=== PATIENT | female | born 1990 | race Caucasian/White ===

== ENCOUNTER 2019-01-30 10:05 | Emergency (ER) | payer OTHER, MEDICAID, SELFPAY ==
[2019-01-30 10:05] VITALS: BP 118/76; PULSE 84; RESP 18; TEMP 36.7; O2SAT 100; BMI 39.8
--- NOTE | 2019-01-30 10:25 | ED_ITS ---
HPI - Skin/Abscess/Foreign Bdy General Chief complaint: Extremity Problem,Nontraumatic Stated complaint: large swollen area on left leg Time Seen by Provider: 01/30/19 10:08 Source: patient Mode of arrival: ambulatory Limitations: no limitations History of Present Illness HPI narrative: 28-year-old female comes to the emergency department with complaint of lesions on both of her lower extremities. Patient states it started over the last couple days. There was one lesion that has improved with redness and swelling. There is another that is little bit red, swollen and had a little bit of purulent drainage. Patient states that seems to be swelling up a little bit more. The other lesions have some slight redness but no swelling and no drainage currently. Patient states it seems to be from below the knees to the tops of the feet. She does not have any other rash or skin changes elsewhere. She states the lesions are not itchy. She does not think that she had any recent exposures. She has not been on any new medications, she does spend time outdoors. 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 She states she has not been wearing shorts she typically does wet pants. Patient denies any fevers, chest pain, no shortness of breath, no nausea or vomiting or other GI or urinary symptoms. She does take sertraline and trazodone has been taking this for several months. She did start a multivitamin recently. She denies any surgeries. Denies any tobacco, rare alcohol, no illicit. Related Data Previous Rx's Medication Instructions Recorded clindamycin HCl 300 mg PO QID 7 Days #28 cap 01/30/19 Allergies Allergy/AdvReac Type Severity Reaction Status Date / Time Penicillins Allergy Verified 01/30/19 10:10 Review of Systems Review of Systems ROS Unobtainable: All systems reviewed & are unremarkable except as noted in HPI and below Constitutional Denies chills, Denies fever(s), Denies lethargy and Denies weakness Cardiovascular Denies chest pain and Denies dyspnea Respiratory Denies dyspnea Gastrointestinal Gastrointestinal: Denies abdominal pain, Denies change in bowel habits, Denies diarrhea, Denies nausea and Denies vomiting Genitourinary Denies hematuria, Denies flank pain, Denies urinary hesitancy and Denies urinary urgency Musculoskeletal Reports as per HPI, Denies muscle weakness, Denies numbness and Denies tingling Integumentary/Breasts Reports as per HPI, Reports erythema, Reports rash, Reports skin swelling, Reports sores and Reports other (Draining from 1 lesion) Neurologic Denies numbness, Denies tingling and Denies weakness [facility] Medical History (Updated 01/30/19 @ 10:25 by Coco Clifford DO) Anxiety (Chronic) Exam Narrative Exam Narrative: GENERAL: Alert and oriented x three, well-nourished, well- appearing female in no acute distress. HEENT: Head normocephalic, atraumatic, EOMI, pupils reactive, face symmetric, moist mucous membranes NECK: Supple, full range of motion CARDIOVASCULAR: Regular rate and rhythm without murmurs, rubs or gallops. RESPIRATORY: Breath sounds equal bilaterally, no wheezes rales or rhonchi. ABDOMEN: Soft, nontender. Normoactive bowel sounds all 4 quadrants. No guarding or rebound, rigidity, no mass : No CVA tenderness EXTREMITIES: Normal range of motion, no clubbing or edema. Neurovascularly intact. 2+ dorsalis pedis bilaterally. Patient has multiple small erythematous ulcerations on your lower extremities from just below the knee to the edge of the top of the foot. Patient has on the left lower extremity on the anterior rosa a larger lesion with surrounding erythema that is about a cm and half in size. There is no active drainage but a little bit of dried serosanguineous. The area has a little bit indurated with no fluctuance. The area does appear slightly excoriated. NEUROLOGICAL: Cranial nerves II through XII grossly intact. Moving all extremities SKIN: Warm, dry, no petechiae. Initial Vital Signs Initial Vital Signs: Vital Signs Temperature 98.1 F 01/30/19 10:05 Pulse Rate 84 01/30/19 10:05 Respiratory Rate 18 01/30/19 10:05 Blood Pressure 118/76 01/30/19 10:05 Pulse Oximetry 100 01/30/19 10:05 Course Vital Signs - 8 hr 01/30/19 10:05 Temperature 98.1 F Pulse Rate 84 Respiratory Rate 18 Blood Pressure 118/76 Pulse Oximetry 100 MDM - Skin/Abscess/Foreign Bdy MDM Narrative Medical decision making narrative: Discussed with patient based on her history as well as the localized pattern on both lower extremities I suspect that there is a more topical or contact type cause of her symptoms. Although a folliculitis from shaving would be possible. Her 1 lesion it does look like it has been come infected. Plan to start on oral antibiotics. Discharge home with plan for warm compresses regularly. Her home medications are unlikely to be because she has been on them for several months and it is very localized reaction. No other findings concerning for other potential causes. Discharge Plan Departure Patient Disposition: Home Clinical Impression: Cellulitis of left leg, Rash and nonspecific skin eruption Discharge Date/Time: 01/30/19 10:48 Interventions: ED Discharge Assessment Last Done: 01/30/19 10:47 Instructions: DI for Cellulitis -- Adult Activity Restrictions/Additional Instructions: Follow-up with primary care for symptoms have not resolved in the next 5-7 days. Start antibiotics today take them until they are completely gone. You may continue home medications as prescribed. Place warm compresses on the affected area, red, swollen area 4 times daily. Return to the emergency department for fevers greater than 100.4 F, worsening redness, swelling, drainage, increasing pain in your lower extremities, rash that is spreading throughout your body, new chest pain, shortness of breath, passing out persistent Prescriptions: New clindamycin HCl 300 mg capsule 300 mg PO QID 7 Days Qty: 28 RF: 0
== END 2019-01-30 10:48 | disposition home or self-care (01) ==
LOC: ED 10:45
PROVIDERS: Emergency Provider Emergency Medicine
DX: L03.116 Cellulitis of left lower limb (principal)
CPT/HCPCS: 99282; 99283

== ENCOUNTER → 2019-06-15 12:36 | Outpatient (CLI) | payer OTHER, MEDICAID, SELFPAY | PROVIDERS: Visit Provider Physician Assistant | DX: R30.0 Dysuria (principal) | CPT/HCPCS: 87077; 87086; 87186 ==

== ENCOUNTER → 2019-07-21 16:34 | Outpatient (CLI) | payer OTHER, SELFPAY | PROVIDERS: Visit Provider Physician Assistant | DX: R30.0 Dysuria (principal) | CPT/HCPCS: 87077; 87086; 87186 ==

== ENCOUNTER → 2020-03-16 12:54 | Outpatient (CLI) | payer OTHER, SELFPAY ==
--- NOTE | 2020-03-16 12:56 | DI.RAD.S_ITS ---
PROCEDURE: XR CHEST 2V INDICATIONS: painful, firm, lump anterior chest TECHNIQUE: 2 views of the chest were acquired. COMPARISON: None. FINDINGS: Surgical changes and devices: None. Lungs and pleura: Lungs are clear. No pleural effusions or pneumothorax. Mediastinum: Mediastinal contours are normal. Heart size is normal. Bones and chest wall: No suspicious bony abnormalities. Soft tissues appear unremarkable. IMPRESSION: No abnormality. Chest radiographs are of poor sensitivity for evaluating chest wall lesions. CT of the chest recommended. Dictated by: Dudley Rivera M.D. on 03/16/2020 at 13:39 Approved by: Dudley Rivera M.D. on 03/16/2020 at 13:39
== END ==
PROVIDERS: PCP Family Medicine; Referring Provider Physician Assistant; Visit Provider Physician Assistant
DX: R22.2 Localized swelling, mass and lump, trunk (principal)
CPT/HCPCS: 71046

== ENCOUNTER → 2020-03-19 14:12 | Outpatient (CLI) | payer OTHER, SELFPAY ==
--- NOTE | 2020-03-19 14:13 | DI.CT.S_ITS ---
PROCEDURE: CT CHEST WO CON INDICATIONS: firm, swollen mass, sternum TECHNIQUE: Noncontrast 5 mm thick sections acquired from the pulmonary apices to the posterior costophrenic angles. 1 mm lung window, 5 mm thick coronal and sagittal and 7 mm axial MIP reformats were then acquired. For radiation dose reduction, the following was used: automated exposure control, adjustment of mA and/or kV according to patient size. COMPARISON: None. FINDINGS: Image quality: Excellent. Lungs and pleura: No acute air space opacities. No pleural effusions or pneumothorax. Central and peripheral airways are patent and normal in caliber. Mediastinum: Heart size is normal. No pericardial effusion. No mediastinal adenopathy by size criteria. Thoracic aorta and central pulmonary arteries are normal in size. Esophagus is normal in caliber. No hiatal hernia. Bones and chest wall: No suspicious bony lesions. Question subtle erosive process at the sternomanubrial junction. Otherwise, no destructive process involving the sternum. No vertebral body compression fractures. No axillary or supraclavicular adenopathy by size criteria. Thyroid gland is unremarkable . Abdomen: Visualized upper abdominal solid organs and bowel loops appear normal in the absence of contrast. IMPRESSION: Question subtle erosive process at the sternomanubrial junction. This finding is of uncertain significance, and may be a normal appearance. Recommend clinical correlation for pain symptoms. Otherwise unremarkable appearance of the sternum and chest. Dictated by: Urban Rose M.D. on 03/19/2020 at 14:28 Approved by: Urban Rose M.D. on 03/19/2020 at 14:40
== END ==
PROVIDERS: PCP Family Medicine; Referring Provider Physician Assistant; Visit Provider Physician Assistant
DX: R22.2 Localized swelling, mass and lump, trunk (principal)
CPT/HCPCS: 71250

== ENCOUNTER → 2020-04-07 11:11 | Outpatient (CLI) | payer OTHER, SELFPAY ==
--- NOTE | 2020-04-07 11:12 | DI.NM.S_ITS ---
PROCEDURE: NM BONE SCAN WHOLE BODY RADIOPHARMACEUTICAL: 21.1 mCi Tc-99m MDP IV. INDICATIONS: tender area upper sternum.?abnormal on CT TECHNIQUE: Delayed whole-body scintigrams were obtained approximately 3-4 hours after intravenous injection of radiotracer. Anterior and posterior views were acquired from vertex to feet. Additional left and right oblique views of the sternal/anterior chest regions were obtained. COMPARISON: [facility], CT, CT CHEST WO CON, 03/19/2020, 14:15. [facility], CR, XR CHEST 2V, 03/16/2020, 13:01. FINDINGS: There is a single identified abnormality centered at the sternal manubrial junction where elevated delayed bone scan isotope deposition is present. This correlates with the area of CT-documented erosions of the lower margin of the manubrial articulation against the upper sternum, where irregularity of the articular margin is more prominent superiorly than inferiorly. IMPRESSION: The CT finding of mild osseous erosion at the sternomanubrial junction margins is identified as an abnormal area of isotope uptake on the current bone scan imaging. This is best seen on the oblique views targeted to the sternum and the finding raises concern given the erosion present of early osteomyelitis. Dictated by: Andrew Avalos M.D. on 04/07/2020 at 15:09 Approved by: Andrew Avalos M.D. on 04/07/2020 at 15:15
== END ==
PROVIDERS: PCP Family Medicine; Referring Provider Family Medicine; Visit Provider Specialist
DX: M89.8X8 Other specified disorders of bone, other site (principal)
CPT/HCPCS: 78306; A9503

== ENCOUNTER → 2020-05-14 07:50 | Outpatient (CLI) | payer OTHER, SELFPAY ==
[2020-05-14 09:41] LABS: INR 1.2 (0.9-1.3); Prothrombin Time 13.5 SECONDS (10.1-12.7)
[2020-05-16 09:26] LABS: COVID19 Sendout Not Detected (Not Detect)
--- NOTE | 2020-05-17 09:51 | DI.CT.S_ITS ---
PROCEDURE: CT BIOPSY BONE SUPERFICIAL INDICATIONS: abnormal sternum on bone scan. FNA for cytoloty AND culture TECHNIQUE: The indications, alternatives, benefits, risks, and possible complications of the procedure were communicated to the patient. Informed written consent from the patient was obtained and placed in the chart. Continuous EKG and hemodynamic monitoring was started by trained personnel. The patient was brought to the CT suite and draw furnace tender spiral CT imaging was performed with localization grid. The appropriate site for percutaneous access to the biopsy target was marked, was prepped and draped sterilely, and was infused with local anaesthesia. Under CT guidance, a core biopsy trocar and needle set was advanced to the biopsy target, and specimen(s) were obtained. The trocar and needle were then removed, and the patient was sent for post-procedure monitoring. COMPARISON: None. FINDINGS: Biopsy site: Upper sternum at sternal manubrial junction Needle: 22 gauge Number of passes: 2. No fluid is aspirated from sternal manubrial junction or bony erosive area involving lower manubrium. Washing of the area with small amount of saline was attempted , unable to inject more than 0.5 milliliters of saline in the region due to significant patient discomfort. Medications: 1% lidocaine for local anaesthesia. Complications: None. IMPRESSION: Attempted CT-guided aspiration from sternal manubrial junction and erosive area involving anterior aspect of lower manubrium. No fluid in the region was noted during the procedure. Dictated by: Rob Bonner M.D. on 05/17/2020 at 10:45 Approved by: Rob Bonner M.D. on 05/17/2020 at 12:11
== END ==
PROVIDERS: Physician Assistant; PCP Family Medicine; Referring Provider Specialist; Visit Provider Specialist
DX: Z11.59 Encounter for screening for other viral diseases (principal); R22.2 Localized swelling, mass and lump, trunk; R94.8 Abnormal results of function studies of other organs and systems
CPT/HCPCS: 36415; 85610; 87635

== ENCOUNTER → 2020-05-17 07:42 | Outpatient (CLI) | payer OTHER, SELFPAY | PROVIDERS: PCP Family Medicine; Referring Provider Family Medicine; Visit Provider Specialist | DX: R22.2 Localized swelling, mass and lump, trunk (principal) | CPT/HCPCS: 20220; 77012 ==

== ENCOUNTER 2021-03-20 19:45 | Emergency (ER) | payer OTHER, MEDICAID, SELFPAY ==
[2021-03-20 19:57] VITALS: BP 123/81; PULSE 77; RESP 18; TEMP 36.8; O2SAT 96
[2021-03-20] MEDS: PROPARACAINE 0.5% OPHTH SOL 1 DROPS EYE-RIGHT (20:15)
--- NOTE | 2021-03-20 21:14 | PC.NURSE ---
Pt took out her contacts at home then irrigated her eye. She did bring her old glasses with her but the rx is very out of date. Pt states the her vision has not changed
--- NOTE | 2021-03-20 22:59 | ED.EYEPROB ---
HPI - Eye Problem General Chief complaint: Eye Problems Stated complaint: RIGHT EYE RED NOT BETTER Time Seen by Provider: 03/20/21 22:24 Source: patient and family Mode of arrival: Ambulatory Limitations: no limitations History of Present Illness HPI Narrative: This is a 31-year-old female comes in with complaint of right eye pain and irritation that started early in the day. She had a contact and felt sort of irritated. It was increasing. She took it out but continues to have quite a bit of pain. It is a little bit better. She does not any pre she any changes to her vision. She has been tearing a lot but does not have any purulent drainage. She does typically wear her contacts as prescribed there monthly contacts that she takes out each day. She does not wear them every day and does sometimes wear glasses instead. She does not recall any foreign bodies or high risk activities. She has not had similar symptoms in the past. She is allergic to amoxicillin. Patient has seen an senior research scientist or electric power machine operator a couple years ago but not recently. She has been getting her contacts are midline. She is up-to-date with her tetanus. Denies other medical history. No eye surgeries or interventions in the past. Related Data Home Medications Medication Instructions Recorded Confirmed No Known Home Medications 03/25/20 03/20/21 Allergies Allergy/AdvReac Type Severity Reaction Status Date / Time amoxicillin Allergy Unknown Verified 03/20/21 19:57 Penicillins Allergy Verified 03/20/21 19:57 Review of Systems Review of Systems ROS Unobtainable: All systems reviewed & are unremarkable except as noted in HPI and below Patient History Medical History (Updated 03/20/21 @ 23:37 by Coco Clifford DO) Anxiety Swelling, mass, or lump in chest Social History Smoking Status: Never smoker Smoking Status: Never smoker alcohol intake frequency: a few times a month Substance Use Type: does not use Exam Narrative Exam Narrative: GEN: well nourished, well appearing female, alert and oriented x 30, patient appears to be in mild distress. HEENT: Atraumatic, pupils are equal round reactive to light, extraocular movements are intact, nares are clear, patient's upper lower lids are slightly swollen in comparison to the left. Patient's tearing regularly, no purulent discharge. TMs are clear with no fluid, there is no conjunctival pallor. Throat is clear without any exudates, erythema, tonsillar enlargement or uvular deviation Visual acuity: Patient does not have her glasses and was unable to visualize the acuity chart without them. IOP: Right 12 mm Hg General: no globe trauma Eyelids: normal inspection, eyelids everted for exam on right. Conjunctiva/Sclera: Patient has mild injection of the sclera as well as a conjunctiva. Corneas: normal inspection, examined with fluroscein on right, patient has a generalized of punctate uptake over the sclera and cornea but without obvious ulceration or abrasion.. EOM: intact, no palsy/entrapment Pupils: PERRL, normal accomadation, pupil normal Anterior Chambers: normal inspection, no hypema Posterior: normal fundoscopic on bilaterally MSCL: full range of motion, normal gait NEURO:CN 2-12 intact, sensation normal SKIN: No rash, patient's does not have any other skin changes. Vesicles Initial Vital Signs Initial Vital Signs: Vital Signs Temperature 98.2 F 03/20/21 19:57 Pulse Rate 77 03/20/21 19:57 Respiratory Rate 18 03/20/21 19:57 Blood Pressure 123/81 03/20/21 19:57 Pulse Oximetry 96 03/20/21 19:57 Course Orders Ordered: Discontinued Medications Fluorescein Sodium (Fluorescein 1 Mg Strip) 1 mg EYE-BOTH NOW ONE Stop: 03/20/21 23:01 Last Admin: 03/20/21 23:10 Dose: 1 mg Documented by: JOHAN Ofloxacin (Ofloxacin 0.3% Ophth 5 Ml) 1 drops EYE-RIGHT NOW ONE Stop: 03/20/21 23:33 Last Admin: 03/20/21 23:49 Dose: 1 drops Documented by: NONA Proparacaine HCl (Proparacaine 0.5% Ophth Anju) 1 drops EYE-RIGHT PRN PRN PRN Reason: Irritation Last Admin: 03/20/21 20:15 Dose: 1 drop Documented by: JOHAN Vital Signs Vital signs: Vital Signs - 8 hr 03/20/21 19:57 Temperature 98.2 F Pulse Rate 77 Respiratory Rate 18 Blood Pressure 123/81 Pulse Oximetry 96 MDM - Eye Problem MDM Narrative Medical decision making narrative: This is a 31-year-old female comes with complaint of right eye red, irritated and somewhat painful. Unable to get a true visual acuity is patient does does not have her contacts in and her glasses are an old prescription and she has a full to see with either are well. Patient appears to have a conjunctivitis. Her pressures are normal, she has generalized irritation of the eye in the setting of someone who normally wears contacts with no obvious ulceration or abrasion over the cornea but some mild punctate changes. Patient was started on antibiotic eyedrops. She was given referral for local electric power machine operator as she has not seen 1 last several years. Patient was instructed clearly not to wear her contacts until cleared by Ophthalmology. Return precautions were also discussed. Discharge Plan Departure Patient Disposition: Home Clinical Impression: Conjunctivitis Qualifiers: Conjunctivitis type: acute Instructions: DI for Conjunctivitis Activity Restrictions/Additional Instructions: Follow-up with ophthalmology for recheck. You can call in the morning to set up a follow-up appointment in the next 1-2 days. Contact information is below I do recommend that you call 1st thing in the morning to set up an appointment. It appears to have a conjunctivitis or infection in the right eye, this is more likely when you wear contacts. Do not wear any contacts particular in the right eye but I would avoid wearing them in both eyes and just wear your glasses. 2 drops to the affected eye 4 times daily while awake (4 times each day) x 10 days. Please return for new or decreasing vision, loss of vision, rapidly worsening pain, purulent discharge, redness or swelling of your face, or other new or concerning symptoms. Prescriptions: No Action No Known Home Medications RF: 0 Referrals: Brandin Fraga MD [Physician] - Bharathi Maldonado DO [Primary Care Provider] -
[2021-03-20] MEDS: FLUORESCEIN 1 MG STRIP EYE-BOTH (23:10)
[2021-03-20] MEDS: OFLOXACIN 0.3% OPHTH 5 ML 1 DROPS EYE-RIGHT (23:49)
== END 2021-03-20 23:50 | disposition home or self-care (01) ==
PROVIDERS: Emergency Provider Emergency Medicine; PCP Family Medicine
DX: H10.31 Unspecified acute conjunctivitis, right eye (principal)
CPT/HCPCS: 99282

== ENCOUNTER 2021-05-13 17:28 | Emergency (ER) | payer OTHER, MEDICAID, SELFPAY ==
[2021-05-13 17:31] VITALS: BP 150/89; PULSE 84; RESP 14; TEMP 36.8; O2SAT 99
[2021-05-13] MEDS: methylPREDNISolone 125 MG/2 ML VIAL IV (17:45)
[2021-05-13] MEDS: FAMOTIDINE 20 MG/2 ML VIAL IV (17:56)
--- NOTE | 2021-05-13 18:46 | ED.ALLEREA ---
HPI - Allergic Reaction General Chief complaint: Allergic Reaction Stated complaint: allergic reaction/severe rash/medication Time Seen by Provider: 05/13/21 17:41 Source: patient Mode of arrival: Ambulatory Limitations: no limitations History of Present Illness HPI narrative: Patient is a 31-year-old female. States she has a diagnosis of a sternal infection. This was made by thoracic surgery and also Infectious Disease. Today she had an infusion of a antibiotic. She is also starting on Cipro but had a 1st dose of this yesterday. She states that shortly after she had the infusion of the antibiotics she started to have redness running up her left arm and also on her neck. Had some nausea. No vomiting. Did feel like her tongue was swelling. No problems breathing. She did take Benadryl prior to arrival. Prior to my evaluation she had received Solu-Medrol and Pepcid. No epinephrine had been administered. Related Data Previous Rx's Medication Instructions Recorded prednisone 20 mg tablet 20 mg PO DAILY 3 Days tab 05/13/21 Allergies Allergy/AdvReac Type Severity Reaction Status Date / Time dalbavancin Allergy Severe Anaphylaxis Verified 05/13/21 18:47 amoxicillin Allergy Unknown Verified 05/13/21 18:47 Penicillins Allergy Verified 05/13/21 18:47 Review of Systems Constitutional Constitutional: Reports as per HPI and Reports system reviewed and no additional complaints, except as documented Eyes Eyes: Reports as per HPI and Reports system reviewed and no additional complaints, except as documented ENT Ears, Nose, Mouth, and Throat: Reports system reviewed and no additional complaints, except as documented and Reports as per HPI Cardiovascular Cardiovascular: Reports as per HPI and Reports system reviewed and no additional complaints, except as documented Respiratory Respiratory: Reports as per HPI and Reports system reviewed and no additional complaints, except as documented Gastrointestinal Gastrointestinal: Reports as per HPI and Reports system reviewed and no additional complaints, except as documented Integumentary/Breasts Skin/Breast: Reports system reviewed and no additional complaints, except as documented and Reports as per HPI Neurologic Neurologic: Reports system reviewed and no additional complaints, except as documented Hematologic/Lymphatic On Anticoagulants: No Allergic/Immunologic Allergic/Immunologic: Reports system reviewed and no additional complaints, except as documented and Reports as per HPI Patient History Medical History Anxiety Swelling, mass, or lump in chest Social History Smoking Status: Never smoker Smoking Status: Never smoker alcohol intake frequency: a few times a month Substance Use Type: does not use Exam Initial Vital Signs Initial Vital Signs: Vital Signs Temperature 98.2 F 05/13/21 17:31 Pulse Rate 84 05/13/21 17:31 Respiratory Rate 14 05/13/21 17:31 Blood Pressure 150/89 H 05/13/21 17:31 Pulse Oximetry 99 05/13/21 17:31 Const General: cooperative, healthy appearing, comfortable and well developed HENMT Head: normal to inspection and normocephalic Mouth: oral mucosae normal Throat: posterior oropharynx normal Eyes General: appearance normal, both eyes and all related structures Resp Effort & Inspection: normal respiratory effort Auscultation: clear to auscultation bilaterally Cardio Rate: regular rate Rhythm: regular rhythm GI Inspection: normal to inspection Back/Spine/Pelvis Back: normal to inspection Skin Other: Patient does have a slight urticarial rash on her neck. Neuro General: patient alert, patient awake and patient oriented x3 Extrem General: normal to inspection and capillary refill normal Psych Appearance: grossly normal and well kempt Course Orders Ordered: Discontinued Medications Famotidine (Famotidine 20 Mg/2 Ml Vial) 20 mg IV NOW ENEDELIA Last Admin: 05/13/21 17:56 Dose: 20 mg Documented by: PIPPA Methylprednisolone (Methylprednisolone 125 Mg/2 Ml Vial) 125 mg IV NOW ONE Stop: 05/13/21 17:42 Last Admin: 05/13/21 17:45 Dose: 125 mg Documented by: GILLIAN Vital Signs Vital signs: Vital Signs - 8 hr 05/13/21 17:31 Temperature 98.2 F Pulse Rate 84 Respiratory Rate 14 Blood Pressure 150/89 H Pulse Oximetry 99 MDM - Allergic Reaction MDM Narrative Medical decision making narrative: Patient had taken Benadryl at home prior to my evaluation and also in receive steroids and famotidine prior to my evaluation as well. She did have a slight urticarial rash on her neck. I suspect that these symptoms are related to the infusion the antibiotics she received today. This is an antibiotic that he is only given once every couple weeks. I did inform her that she should not receive any more this antibiotic. She was observed here in the emergency department for several hours with improvement of her symptoms. She never received epinephrine. She is also scheduled to take Cipro. She took a dose of this yesterday without any issues and her rash started after she received the infusion today so suspect that the issue was not related to the Cipro. She will continue to take this as directed. She will be sent home with a prescription for prednisone however she was instructed to hold on taking this unless her symptoms returned over the past 24 hours. She was given strict return precautions. She expressed understanding and agreement. She was also instructed to tell the infectious disease provider who ordered the antibiotics of her reaction today. Discharge Plan Departure Patient Disposition: Home Clinical Impression: Allergic reaction Instructions: DI for Adverse Drug Reaction -- Allergic Activity Restrictions/Additional Instructions: I recommend that you continue with the Cipro as directed. Contact your infectious disease provider who ordered the antibiotic to let him/her know that she had a reaction to it. Return to the emergency department for any new or worsening symptoms. Prescriptions: New prednisone 20 mg tablet 20 mg PO DAILY 3 Days RF: 0 Referrals: Bharathi Maldonado DO [Primary Care Provider] -
--- NOTE | 2021-05-13 18:51 | PC.NURSE ---
Rash to chest and face appear to have resolved, patient reports tingling to tongue and throat remain but improved.
[2021-05-13 19:02] VITALS: PULSE 59; RESP 18; O2SAT 99
[2021-05-13 19:30] VITALS: BP 120/79; PULSE 73; RESP 28; O2SAT 98
[2021-05-13 20:00] VITALS: BP 122/67; PULSE 62; RESP 20; O2SAT 98
== END 2021-05-13 20:10 | disposition home or self-care (01) ==
PROVIDERS: Emergency Provider Emergency Medicine; PCP Family Medicine
DX: R21 Rash and other nonspecific skin eruption (principal); T78.40XA Allergy, unspecified, initial encounter
CPT/HCPCS: 36415; 96374; 96375; 99284; J2930

== ENCOUNTER 2021-05-17 11:52 | Emergency (ER) | payer OTHER, MEDICAID, SELFPAY ==
[2021-05-17 12:01] VITALS: BP 138/108; PULSE 111; RESP 15; TEMP 36.1; O2SAT 100
--- NOTE | 2021-05-17 13:49 | ED.ALLEREA ---
HPI - Allergic Reaction <Joseph Mcdonald PA-C - Last Filed: 05/17/21 15:38> General Chief complaint: Allergic Reaction Stated complaint: allergic reaction comp. chest pain, lighthead,Hot Time Seen by Provider: 05/17/21 13:10 Source: patient Mode of arrival: Ambulatory Limitations: no limitations History of Present Illness HPI narrative: 31-year-old female with past medical history startle mass presents to the ED with lightheadedness, throat discomfort. Patient was seen at our ED on 05/13/2021 for an allergic reaction, treated with prednisone, Benadryl, Pepcid. No epinephrine was given. Patient was discharged home with a prescription for prednisone for the next 3 days. Patient took 1 dose the next day, and stop taking it since she felt that it was not helping her symptoms. Since then patient has experienced some lightheadedness, anorexia, tingling sensations in the chest. Patient also endorses some bombs at the back of her tongue and discomfort in her throat. Patient denies fever, endorses chills. Patient denies shortness of breath, cough, nausea, vomiting, abdominal pain, dysuria, syncope. Patient's initial allergic reaction on 05/13/2021 was following a Cipro infusion that she received from Infectious Disease specialist at [facility] for a suspected sternal infection. Since the reaction, patient has not taken any more Cipro. Patient unaware of any other allergies, however patient does state that she gets wheels from when she gets insect bites. Related Data Allergies Allergy/AdvReac Type Severity Reaction Status Date / Time dalbavancin Allergy Severe Anaphylaxis Verified 05/17/21 12:01 amoxicillin Allergy Unknown Verified 05/17/21 12:01 Penicillins Allergy Verified 05/17/21 12:01 Review of Systems <Joseph Mcdonald PA-C - Last Filed: 05/17/21 15:38> Constitutional Constitutional: Reports anorexia, Denies fatigue and Denies frequent falls Eyes Eyes: Denies change in vision, Denies eye discharge, Denies irritation and Denies loss of vision ENT Ears, Nose, Mouth, and Throat: Denies change in voice, Denies dizziness, Denies neck pain, Denies sore throat and Denies throat swelling Comments: Bumps on tongue, throat discomfort Cardiovascular Cardiovascular: Denies chest pain, Denies irregular heart rhythm, Denies lightheadedness, Denies palpitations, Denies dyspnea, Denies dyspnea on exertion and Denies orthopnea Comments: Chest tingling Respiratory Respiratory: Denies cough, Denies dyspnea, Denies dyspnea on exertion and Denies wheezing Gastrointestinal Gastrointestinal: Denies abdominal pain, Denies change in bowel habits, Denies diarrhea, Denies nausea and Denies vomiting Musculoskeletal Musculoskeletal: Denies neck pain and Denies numbness Integumentary/Breasts Skin/Breast: Denies pruritus, Denies erythema, Denies rash and Denies wounds Neurologic Neurologic: Denies behavioral changes, Denies confusion, Denies dizziness, Denies frequent falls, Denies loss of vision and Denies numbness Psychiatric Psychiatric: Denies anxiety, Denies behavioral changes, Denies confusion, Denies depression, Denies homicidal ideation and Denies suicidal ideation Endocrine Endocrine: Denies fatigue, Denies flushing and Denies palpitations Hematologic/Lymphatic Hematologic/Lymphatic: Denies easy bruising Allergic/Immunologic Allergic/Immunologic: Denies urticaria, Denies throat swelling and Denies wheezing Patient History <Joseph Mcdonald PA-C - Last Filed: 05/17/21 15:38> Medical History (Updated 05/17/21 @ 15:18 by Joseph Mcdonald PA-C) Anxiety Swelling, mass, or lump in chest Social History Smoking Status: Never smoker Smoking Status: Never smoker alcohol intake frequency: a few times a month Substance Use Type: does not use Exam <Joseph Mcdonald PA-C - Last Filed: 05/17/21 15:38> Initial Vital Signs Initial Vital Signs: Vital Signs Temperature 96.9 F L 05/17/21 12:01 Pulse Rate 111 H 05/17/21 12:01 Respiratory Rate 15 05/17/21 12:01 Blood Pressure 138/108 H 05/17/21 12:01 Pulse Oximetry 100 05/17/21 12:01 Const General: cooperative HENMT Head: normocephalic and atraumatic Ears: external ears normal and TM's normal bilaterally Nose: external nose normal and No nasal discharge Face and sinus: sinuses nontender, face symmetric, no sinus tenderness and No dry mucous membranes Mouth: oral mucosae normal, moist mucous membranes and tongue abnormal (Bumps visualized on the back of the tongue) Teeth and gingiva: dentition normal Throat: posterior oropharynx normal, tonsils normal and uvula midline Eyes General: appearance normal, both eyes and all related structures Eyelids: eyelids normal Conjunctivae: conjunctivae normal Sclera: sclerae normal Pupils: PERRL EOM: EOM intact bilaterally Neck Neck: normal visual inspection, trachea midline, No lymphadenopathy, No midline deformity and No JVD Lymphatic: No lymphedema Chest Chest: normal inspection of the chest Resp Effort & Inspection: normal respiratory effort, able to speak in complete sentences, no respiratory distress and no use of accessory muscles Auscultation: clear to auscultation bilaterally, no rales, no rhonchi and no wheezes Cardio Rate: regular rate Rhythm: regular rhythm Heart Sounds: no click, no gallops, no murmurs and no rubs Pulses: normal peripheral pulses GI Inspection: non-distended Palpation: soft, no hepatosplenomegaly, No guarding, No pulsatile mass and No tender Auscultation: normal bowel sounds Back/Spine/Pelvis Back: No CVA tenderness Cervical Spine: cervical ROM normal and No pain with cervical ROM Thoracic/Lumbar Spine: thoracic and lumbar spine normal to inspection Skin General: No jaundice and No petechiae Other: A bug bite/lesion/wheal noted on left shoulder with surrounding erythema. Neuro General: patient alert, patient oriented x3, gait normal and no focal motor deficits Speech: speech normal Extrem General: full ROM, no clubbing, cyanosis or edema, no pedal edema and no calf tenderness Psych Appearance: well kempt Mental Status: mental status grossly normal Attitude: cooperative Thought Content: normal and suicidality Judgment: judgment good <Jonathan Sahni DO - Last Filed: 05/18/21 23:14> Initial Vital Signs Initial Vital Signs: Vital Signs Temperature 96.9 F L 05/17/21 12:01 Pulse Rate 111 H 05/17/21 12:01 Respiratory Rate 15 05/17/21 12:01 Blood Pressure 138/108 H 05/17/21 12:01 Pulse Oximetry 100 05/17/21 12:01 Course <Joseph Mcdonald PA-C - Last Filed: 05/17/21 15:38> Course Course Narrative: Labs within normal limits, unlikely infection. Patient is stable in the ED, no angioedema, no trouble breathing. DC home with ED return precautions and follow-up with patient's infectious disease specialist. Orders Ordered: Discontinued Medications Diphenhydramine HCl (Diphenhydramine 25 Mg Tablet) 50 mg PO NOW ONE Stop: 05/17/21 13:37 Last Admin: 05/17/21 14:10 Dose: 50 mg Documented by: JACLYN Famotidine (Famotidine 20 Mg Tablet) 20 mg PO NOW ONE Stop: 05/17/21 13:40 Last Admin: 05/17/21 14:10 Dose: 20 mg Documented by: JACLYN Sodium Chloride (Normal Saline 0.9%) 1,000 mls @ 1,000 mls/hr IV BOLUS ONE Stop: 05/17/21 14:42 Last Admin: 05/17/21 14:10 Dose: 1,000 mls/hr Documented by: JACLYN Prednisone (Prednisone 20 Mg Tablet) 20 mg PO NOW ONE Stop: 05/17/21 13:37 Last Admin: 05/17/21 14:10 Dose: 20 mg Documented by: JACLYN Vital Signs Vital signs: Vital Signs - 8 hr 05/17/21 12:01 05/17/21 15:31 Temperature 96.9 F L Pulse Rate 111 H 81 Respiratory Rate 15 18 Blood Pressure 138/108 H 126/58 L Pulse Oximetry 100 97 <Jonathan Sahni DO - Last Filed: 05/18/21 23:14> Orders Ordered: Discontinued Medications Diphenhydramine HCl (Diphenhydramine 25 Mg Tablet) 50 mg PO NOW ONE Stop: 05/17/21 13:37 Last Admin: 05/17/21 14:10 Dose: 50 mg Documented by: JACLYN Famotidine (Famotidine 20 Mg Tablet) 20 mg PO NOW ONE Stop: 05/17/21 13:40 Last Admin: 05/17/21 14:10 Dose: 20 mg Documented by: JACLYN Sodium Chloride (Normal Saline 0.9%) 1,000 mls @ 1,000 mls/hr IV BOLUS ONE Stop: 05/17/21 14:42 Last Admin: 05/17/21 14:10 Dose: 1,000 mls/hr Documented by: JACLYN Prednisone (Prednisone 20 Mg Tablet) 20 mg PO NOW ONE Stop: 05/17/21 13:37 Last Admin: 05/17/21 14:10 Dose: 20 mg Documented by: JACLYN Vital Signs Vital signs: Vital Signs - 8 hr 05/17/21 12:01 05/17/21 15:31 Temperature 96.9 F L Pulse Rate 111 H 81 Respiratory Rate 15 18 Blood Pressure 138/108 H 126/58 L Pulse Oximetry 100 97 MDM - Allergic Reaction <Joseph Mcdonald PA-C - Last Filed: 05/17/21 15:38> Lab Data Lab results narrative: Labs within normal limits Result diagrams: 05/17/21 14:43 05/17/21 14:43 Labs: Lab Results 05/17/21 05/17/21 Range/Units 14:43 14:43 WBC 7.2 (4.5-11.0) X10^3/uL RBC 4.41 (4.0-5.2) X10^6/uL Hgb 13.5 (12.0-16.0) g/dL Hct 40.6 (36-46) % MCV 92.1 (80-100) fL MCH 30.6 (26-34) PG MCHC 33.2 (30-36) % RDW 12.9 (11.6-14.8) % Plt Count 242 (150-400) X10^3/uL Neut % (Auto) 63.2 (50-75) % Lymph % (Auto) 21.6 L (25-40) % [place] % (Auto) 10.8 (3-14) % Eos % (Auto) 3.6 (2-4) % Baso % (Auto) 0.8 (0-2) % Neut # (Auto) 4500 (2049-4127) /uL Lymph # (Auto) 1500 (4523-0093) /uL [place] # (Auto) 800 (0-900) /uL Eos # (Auto) 300 (0-450) /uL Baso # (Auto) 100 (0-100) /uL Sodium 140 (137-145) mmol/L Potassium 3.8 (3.4-5.1) mmol/L Chloride 102 (98-107) mmol/L Carbon Dioxide 30 (22-32) mmol/L BUN 10 (7-17) mg/dL Creatinine 0.63 (0.52-1.04) mg/dL Estimated GFR > 60.0 (>60) mL/min BUN/Creatinine Ratio 15.9 (6-22) Glucose 96 (70-100) mg/dL Calcium 9.3 (8.4-10.2) mg/dL Total Bilirubin 0.4 (0.2-1.3) mg/dL AST 29 (14-36) IU/L ALT 22 (<35) IU/L Alkaline Phosphatase 88 (38-126) U/L Total Protein 7.4 (6.3-8.2) g/dL Albumin 4.4 (3.5-5.0) g/dL Globulin 3.0 (1.7-4.1) g/dL Albumin/Globulin Ratio 1.5 (1.0-2.8) Point of Care Testing Test Results Negative Urine Dip Bedside Urine Glucose Negative Bedside Urine Bilirubin - Negative Bedside Urine Ketone - Negative Urine Specific Excel 1.015 Bedside Urine Occult Blood - Negative Bedside Urine pH 6.5 Bedside Urine Protein - Negative Bedside Urine Urobilinogen - Negative Bedside Urine Nitrite - Negative Bedside Urine Leukocytes - Negative Esterase MDM Narrative Medical decision making narrative: 31-year-old female with past medical history startle mass presents to the ED with lightheadedness, throat discomfort. Physical exam shows some bumps at the back of the tongue, but no erythema, swelling/angioedema. Airway patent. Patient has some isolated redness around a presumed bug bite on the left shoulder. Will treat patient for an allergic reaction with prednisone, Benadryl, Pepcid. No indication for epinephrine, given symptoms not consistent with anaphylaxis. Will get labs to rule out electrolyte abnormalities, dehydration, infection. Infection less likely, given patient's symptoms, patient looks well. However will obtain CBC since patient was initially being treated for an infectious process. Will reassess. Likely discharge home with ED return precautions. <Jonathan Sahni, DO - Last Filed: 05/18/21 23:14> Lab Data Labs: Lab Results 05/17/21 05/17/21 Range/Units 14:43 14:43 WBC 7.2 (4.5-11.0) X10^3/uL RBC 4.41 (4.0-5.2) X10^6/uL Hgb 13.5 (12.0-16.0) g/dL Hct 40.6 (36-46) % MCV 92.1 (80-100) fL MCH 30.6 (26-34) PG MCHC 33.2 (30-36) % RDW 12.9 (11.6-14.8) % Plt Count 242 (150-400) X10^3/uL Neut % (Auto) 63.2 (50-75) % Lymph % (Auto) 21.6 L (25-40) % [place] % (Auto) 10.8 (3-14) % Eos % (Auto) 3.6 (2-4) % Baso % (Auto) 0.8 (0-2) % Neut # (Auto) 4500 (0540-9868) /uL Lymph # (Auto) 1500 (7460-5357) /uL [place] # (Auto) 800 (0-900) /uL Eos # (Auto) 300 (0-450) /uL Baso # (Auto) 100 (0-100) /uL Sodium 140 (137-145) mmol/L Potassium 3.8 (3.4-5.1) mmol/L Chloride 102 (98-107) mmol/L Carbon Dioxide 30 (22-32) mmol/L BUN 10 (7-17) mg/dL Creatinine 0.63 (0.52-1.04) mg/dL Estimated GFR > 60.0 (>60) mL/min BUN/Creatinine Ratio 15.9 (6-22) Glucose 96 (70-100) mg/dL Calcium 9.3 (8.4-10.2) mg/dL Total Bilirubin 0.4 (0.2-1.3) mg/dL AST 29 (14-36) IU/L ALT 22 (<35) IU/L Alkaline Phosphatase 88 (38-126) U/L Total Protein 7.4 (6.3-8.2) g/dL Albumin 4.4 (3.5-5.0) g/dL Globulin 3.0 (1.7-4.1) g/dL Albumin/Globulin Ratio 1.5 (1.0-2.8) Point of Care Testing Test Results Negative Urine Dip Bedside Urine Glucose Negative Bedside Urine Bilirubin - Negative Bedside Urine Ketone - Negative Urine Specific Excel 1.015 Bedside Urine Occult Blood - Negative Bedside Urine pH 6.5 Bedside Urine Protein - Negative Bedside Urine Urobilinogen - Negative Bedside Urine Nitrite - Negative Bedside Urine Leukocytes - Negative Esterase Discharge Plan Departure Patient Disposition: Home Clinical Impression: Allergic reaction Qualifiers: Encounter type: subsequent encounter Qualified Code(s): T78.40XD - Allergy, unspecified, subsequent encounter Instructions: DI for Adverse Drug Reaction -- Allergic Activity Restrictions/Additional Instructions: You were evaluated in the ED today for an allergic reaction. Your labs were normal. You were treated with Benadryl, Pepcid, prednisone, IV fluids. Please return to the ED if you have any trouble breathing, experience chest pain, throat or tongue swelling. Please finish your course of prednisone for the next 2 days. Please follow-up with your infectious disease specialist at [facility] a soon as possible. Referrals: Bharathi Maldonado DO [Primary Care Provider] - <Jonathan Sahni DO - Last Filed: 05/18/21 23:14> Cosign ED Attending Cosignature Attestation: I was immediately available in the department for consultation. This documentation has been reviewed and I agree with assessment and plan. Supervised by Jonathan Sahni DO
[2021-05-17] MEDS: predniSONE 20 MG TABLET PO (14:10)
[2021-05-17] MEDS: FAMOTIDINE 20 MG TABLET PO (14:10)
[2021-05-17] MEDS: SODIUM CHLORIDE 0.9% 1,000 ML 1000 ML IV (14:10)
[2021-05-17] MEDS: diphenhydrAMINE 25 MG TABLET 50 MG PO (14:10)
--- NOTE | 2021-05-17 14:37 | PC.NURSE ---
Patient states she went to [facility] ED on Sunday for sternum infection. She states she received infusion antibiotics @ [facility] ED and was discharged. Later that night she describes allergic reaction symptoms rash from forehead to chest, red face, swollen lips/tongue. She called [facility] ED on Sunday to report the symptoms. Patient here today for follow up of sternum infection and allergic symptoms.
[2021-05-17 14:51] LABS: Add Manual Diff / Slide Review NO; Basophils Absolute Auto 100 /uL (0-100); Basophils Percent Auto 0.8 % (0-2); Eosinophils Absolute Auto 300 /uL (0-450); Eosinophils Percent Auto 3.6 % (2-4); Hematocrit 40.6 % (36-46); Hemoglobin 13.5 g/dL (12.0-16.0); Lymphocytes Absolute Auto 1500 /uL (1100-4500); Lymphocytes Percent Auto 21.6 % (25-40); Mean Corpuscular HGB Conc 33.2 % (30-36); Mean Corpuscular Hemoglobin 30.6 PG (26-34); Mean Corpuscular Volume 92.1 fL (80-100); Monocytes Absolute Auto 800 /uL (0-900); Monocytes Percent Auto 10.8 % (3-14); Neutrophils Absolute Auto 4500 /uL (1500-7000); Neutrophils Percent Auto 63.2 % (50-75); Platelet Count 242 X10^3/uL (150-400); Red Blood Cell Count 4.41 X10^6/uL (4.0-5.2); Red Cell Distribution Width 12.9 % (11.6-14.8); White Blood Cell Count 7.2 X10^3/uL (4.5-11.0)
[2021-05-17 15:11] LABS: Alanine Aminotransferase 22 IU/L (<35); Albumin 4.4 g/dL (3.5-5.0); Albumin Globulin Ratio 1.5 (1.0-2.8); Alkaline Phosphatase 88 U/L (38-126); Aspartate Aminotransferase 29 IU/L (14-36); BUN Creatinine Ratio 15.9 (6-22); Bilirubin Total 0.4 mg/dL (0.2-1.3); Blood Urea Nitrogen 10 mg/dL (7-17); Calcium 9.3 mg/dL (8.4-10.2); Carbon Dioxide 30 mmol/L (22-32); Chloride 102 mmol/L (98-107); Estimated Glomerular Filt Rate > 60.0 mL/min (>60); Glucose 96 mg/dL (70-100); HEMOLYSIS < 15 (0-50); Potassium 3.8 mmol/L (3.4-5.1); Sodium 140 mmol/L (137-145); Total Protein 7.4 g/dL (6.3-8.2)
[2021-05-17 15:31] VITALS: BP 126/58; PULSE 81; RESP 18; O2SAT 97
--- NOTE | 2021-06-17 12:59 | PC.NURSE ---
late entry per RN IV fluids DC'd upon discharge at 1500
== END 2021-05-17 15:32 | disposition home or self-care (01) ==
PROVIDERS: Emergency Provider Student in an Organized Health Care Education/Training Program; PCP Family Medicine
DX: R07.0 Pain in throat (principal); T78.40XD Allergy, unspecified, subsequent encounter
CPT/HCPCS: 36415; 80053; 81003; 81025; 85025; 96360; 99284; A9270

== ENCOUNTER → 2024-11-11 15:35 | Outpatient (CLI) | payer OTHER, SELFPAY ==
[2024-11-11 16:50] LABS: COVID-19 CEPHEID 4-PLEX PCR Negative (Negative); Influenza A - CEPHEID Flu A NEGATIVE (NEGATIVE); Influenza B - CEPHEID Flu B NEGATIVE (NEGATIVE); Respiratory Syncytial Virus Negative (Negative)
== END ==
PROVIDERS: PCP Family Medicine; Visit Provider Nurse Practitioner Family
DX: J02.9 Acute pharyngitis, unspecified (principal)
CPT/HCPCS: 0241U; 87070; 87147